=== PATIENT | female | born 1985 | race African-American/Black ===

== ENCOUNTER 2017-02-05 16:56 | Emergency (ER) | payer OTHER, MEDICAID ==
[2017-02-05 17:03] VITALS: BMI 30.1
--- NOTE | 2017-02-05 17:17 | DR.GENAD ---
HPI - PCP Primary Care Physician: NFD - Complaint/Symptoms Chief Complaint Doctors Comments: Patient states that she has been having pain in her right upper extremity for three and is getting worse. She took Bactrim DS given to her by her mother. The pain is 10 in severity, worse with movement, quality sharp. Chief Complaint:: PT C/O RIGHT ARM EDEMA WITH BLISTERS, THAT STARTED A DAY AGO AND ITS GETTING WORSE... Self Treatment fo Chief Complaint: HEAT, HEATING PAD - Source History Provided: Patient - Mode of Arrival Mode of Arrival: Wheelchair - Timing Onset of Chief Complaint: 02/03/17 PMH - PMH Past Medical History: Yes Past Medical History: Hypertension Past Medical History Comment: CERVICAL CANCER.. Past Surgical History: Yes Past Surgical History Comment: C-SECTIONS, KNEE SURGERY - Family History History of Family Medical Conditions: Yes Family Medical History: Hypertension - Social History Does patient currently use any type of tobacco product: Yes Have you used tobacco products in the last 12 months: Yes Type of Tobacco Use: Cigarettes How many years tobacco product used: 16 Does any household member use tobacco: No Alcohol Use: None Do you use any recreational Drugs:: Yes (THC) Lives With: Alone Lives Where: Home - infectious screening In the last 2 months have you had wt loss of >10#?: NO Have you had fever, night sweats or hemotysis?: No Have you traveled outside the country in the last 6 months?: No Isolation: Standard ROS - Review of Systems Constitutional: No Symptoms Reported Eyes: No Symptoms Reported ENTM: No Symptoms Reported Respiratoy: No Symptoms Reported Cardiovascular: No Symptoms Reported Gastrointestinal/Abdominal: No Symptoms Reported Genitourinary: No Symptoms Reported Neurological: No Symptoms Reported Musculoskeletal: Muscle Pain (right upper extremity), Arm (right edematous) Integumentary: No Symptoms Reported Hematologic/Lymphatic: No Symptoms Reported Endocrine: No Symptoms Reported Psychiatric: No Symptoms Reported All Other Systems: Reviewed and Negative PE - Vital Signs Vitals: Temperature 101.2 F Pulse Rate [Apical] 122 Pulse Rate 143 Respiratory Rate 16 Blood Pressure [Left Arm] 134/81 Blood Pressure 146/92 O2 Sat by Pulse Oximetry 100 - General Limitations: No Limitations General Appearance: Alert, Anxious - Head Head Exam: Normal Inspection, Atraumatic - Eyes Eye exam: Normal Appearance, PERRL, EOMI - ENT ENT Exam: Normal Exam TM/Canal Exam: Bilateral Normal Nose Exam: Normal Nose Exam Mouth Exam: Normal Inspection Throat Exam: Normal Inspection - Neck Neck Exam: Normal Inspection - Chest Chest Inspection: Normal Inspection - Respiratory Respiratory Exam: Normal Lung Sounds Bilat Respiratory Exam: Bilateral Clear to Auscultation - Cardiovascular Cardiovascular Exam: Regular Rate, Normal Rhythm - Abdominal Exam Abdominal Exam: Normal Inspection Abdominal Tenderness: negative: RUQ, RLQ, LUQ, LLQ, Epigastrium, Suprapubic, Diffuse, Mild, Moderate, Severe, Other - Extremities Extremities Exam: Tenderness, Joint Swelling (right upper extremity) - Back Back Exam: Tenderness (RUE) - Neurologic Neurological Exam: Alert, Oriented X3, CN II-XII Intact - Psychiatric Psychiatric Exam: Normal Affect - Skin Skin Exam: Warm, Dry Course - Reevaluation 1st: Unchanged - Consultation Called: 21:45 (No return call communicated via 3rd constitution party to call back in AM) Call Returned: 21:40 (Need surgical back up prior to acceptance) Consultation Comments: [facility] called at [phone], Dr Koo accepted patient for transfer. ROR - Labs Reviewed Laboratory Results Reviewed?: Yes (low sod, low pot) Result Diagrams: 02/05/17 17:52 02/05/17 17:52 Laboratory: WBC 22.0 X10^3/uL (3.6-10.0) H* 02/05/17 17:52 RBC 4.97 X10^6/uL (3.5-5.4) 02/05/17 17:52 Hgb 14.1 g/dL (12.0-16.0) 02/05/17 17:52 Hct 42.7 % (36.0-47.0) 02/05/17 17:52 MCV 85.9 fL (80.0-100.0) 02/05/17 17:52 MCH 28.4 pg (27.0-34.0) 02/05/17 17:52 MCHC 33.1 g/dL (33.0-35.0) 02/05/17 17:52 RDW 12.8 % (11.6-16.5) 02/05/17 17:52 Plt Count 357 X10^3/uL (150.0-450.0) 02/05/17 17:52 Plt Count Comment Adequate (ADEQUATE) 04/14/17 17:52 MPV 8.0 fL (7.4-11.0) 02/05/17 17:52 Neut % 78.5 % (42.0-75.0) H 02/05/17 17:52 Lymph % 13.0 % (21.0-51.0) L 02/05/17 17:52 Murray % 7.7 % (0.0-13.0) 02/05/17 17:52 Eos % 0.2 % (0.9-2.9) L 02/05/17 17:52 Baso % 0.6 % (0.2-1.0) 02/05/17 17:52 Neut # 17.3 x10^3/uL (2.2-4.8) H 02/05/17 17:52 Lymph # 2.9 X10^3/uL (1.3-2.9) 02/05/17 17:52 Murray # 1.7 x10^3/uL (0.3-0.8) H 02/05/17 17:52 Eos # 0.0 x10^3/uL (0.0-0.2) 02/05/17 17:52 Baso # 0.1 X10^3/uL (0.0-0.1) 02/05/17 17:52 Absolute Nucleated RBC 0.0 /100WBC 02/05/17 17:52 Total Counted 100 02/05/17 17:52 Neutrophils % (Manual) 74 % (39-76) 02/05/17 17:52 Band Neutrophils % 5 % (0-10) 02/05/17 17:52 Lymphocytes % (Manual) 15 % (13-43) 02/05/17 17:52 Monocytes % (Manual) 5 % (4-9) 02/05/17 17:52 Eosinophils % (Manual) 1 % (0-6) 02/05/17 17:52 Plt Morphology Comment Normal (NORMAL) 02/05/17 17:52 RBC Morphology Normal (NORMAL) 02/05/17 17:52 INR Target Range - 02/05/17 17:30 INR 1.11 (0.8-1.3) 02/05/17 17:30 PTT 30.7 SECONDS (22.9-36.5) 02/05/17 17:30 PTT Comment - 02/05/17 17:30 D-Dimer 2730 ng/mL (0-400) H* 02/05/17 17:52 Sodium 133 mmol/L (136-145) L 02/05/17 17:52 Corrected Sodium 133 mmol/L (136-145) L 02/05/17 17:52 Potassium 3.3 mmol/L (3.5-5.1) L 02/05/17 17:52 Chloride 94 mmol/L (98-107) L 02/05/17 17:52 Carbon Dioxide 28.0 mmol/L (21-32) 02/05/17 17:52 BUN 7 mg/dL (7-18) 02/05/17 17:52 Creatinine 1.13 mg/dL (0.55-1.02) H 02/05/17 17:52 Est GFR (MDRD) Af Amer > 60 (>60) 02/05/17 17:52 Est GFR (MDRD) Non-Af 60 (>60) 02/05/17 17:52 Glucose 111 mg/dL (65-99) H 02/05/17 17:52 Calcium 9.6 mg/dL (8.5-10.1) 02/05/17 17:52 Corrected Calcium TNP 02/05/17 17:52 Total Bilirubin 1.00 mg/dL (0.2-1.0) 02/05/17 17:52 AST 26 Units/L (15-37) 02/05/17 17:52 ALT 41 Units/L (12-78) 02/05/17 17:52 Alkaline Phosphatase 79 Units/L (46-116) 02/05/17 17:52 C-Reactive Protein 167.90 mg/L (0-3.0) H 02/05/17 17:52 Total Protein 9.4 g/dL (6.4-8.2) H 02/05/17 17:52 Albumin 3.9 g/dL (3.4-5.0) 02/05/17 17:52 Globulin 5.5 g/dL (2.5-4.5) H 02/05/17 17:52 Albumin/Globulin Ratio 0.7 Ratio (1.1-2.1) L 02/05/17 17:52 Specimen Type Clean catch urine 02/05/17 19:46 Urine Color Yellow (YELLOW) 02/05/17 19:46 Urine Appearance Clear (CLEAR) 02/05/17 19:46 Urine pH 6.5 (5.0 - 8.0) 02/05/17 19:46 Ur Specific [place] 1.005 (1.000-1.030) 02/05/17 19:46 Urine Protein Negative (NEGATIVE) 02/05/17 19:46 Urine Glucose (UA) Negative (NEGATIVE) 02/05/17 19:46 Urine Ketones Negative (NEGATIVE) 02/05/17 19:46 Urine Occult Blood Negative (NEGATIVE) 02/05/17 19:46 Urine Nitrite Negative (NEGATIVE) 02/05/17 19:46 Urine Bilirubin Negative (NEGATIVE) 02/05/17 19:46 Urine Urobilinogen 2+ (NORMAL) 02/05/17 19:46 Ur Leukocyte Esterase Negative (NEGATIVE) 02/05/17 19:46 Urine RBC 0-5 /HPF (NEGATIVE) 02/05/17 19:46 Urine WBC 0-3 /HPF (NEGATIVE) 02/05/17 19:46 Ur Squamous Epith Cells Rare /HPF (NEGATIVE) 02/05/17 19:46 Urine Bacteria Negative /HPF (NEGATIVE) 02/05/17 19:46 Ur Culture Indicated? No/not indicated 02/05/17 19:46 - XRAY XRAY Interpreted by: Radiologist (Doppler U/S: There is an abscess measuring 2.8x2.7x3 cm in the right barachial area. The deep veins of the right upper extremity augment and show biphasic flow and compression. However the brachial vein is not seen well due to the large abscess. Impression: No evidence for venous thromgbosis in the right upper extremity, Right Brachial abscess.) - Diagnosis Discharge Problem: Brachial vein abscess, Cellulitis of upper arm and forearm - Discharge Plan Condition: Stable - Follow ups/Referrals Follow ups/Referrals: NFD,None [Primary Care Provider] - 3 days - Instructions
[2017-02-05] MEDS ORDERED: NS 1000 ML 1,000 ML IV ONE (17:18)
[2017-02-05] MEDS ORDERED: NS 1000 ML 1,000 ML ONE ×2 (17:26→19:00)
[2017-02-05 18:08] LABS: ALANINE AMINOTRANSFERASE 41 Units/L (12-78); ALBUMIN 3.9 g/dL (3.4-5.0); ALKALINE PHOSPHATASE 79 Units/L (46-116); ASPARTATE AMINO TRANSFERASE 26 Units/L (15-37); BLOOD UREA NITROGEN 7 mg/dL (7-18); CALCIUM 9.6 mg/dL (8.5-10.1); CHLORIDE 94 mmol/L (98-107); COR NA(FOR HYPERGLY) 133 mmol/L (136-145); CREATININE 1.13 mg/dL (0.55-1.02); GLUCOSE 111 mg/dL (65-99); SODIUM 133 mmol/L (136-145); TOTAL PROTEIN 9.4 g/dL (6.4-8.2); eGFR BLACK RACES > 60 (>60); eGFR NON BLACK RACES 60 (>60)
--- NOTE | 2017-02-05 18:32 | RAD ---
HISTORY: 31-year-old female with fever and diffuse body pain. Study: Single frontal view of the chest. Comparison: None. Findings: The trachea is midline. The cardiac silhouette is unremarkable. The lungs are clear without focal infiltrate or effusion. The bony thorax is unremarkable. IMPRESSION: 1. No acute cardiopulmonary disease. Reported By:
[2017-02-05 18:33] LABS: BASOPHILS # (AUTO) 0.1 X10^3/uL (0.0-0.1); BASOPHILS % (AUTO) 0.6 % (0.2-1.0); EOSINOPHILS % (AUTO) 0.2 % (0.9-2.9); HEMATOCRIT 42.7 % (36.0-47.0); HEMOGLOBIN 14.1 g/dL (12.0-16.0); LYMPHOCYTES # (AUTO) 2.9 X10^3/uL (1.3-2.9); MEAN CORPUSCULAR HEMOGLOBIN 28.4 pg (27.0-34.0); MEAN CORPUSCULAR HGB CONC 33.1 g/dL (33.0-35.0); MEAN CORPUSCULAR VOLUME 85.9 fL (80.0-100.0); MONOCYTES # (AUTO) 1.7 x10^3/uL (0.3-0.8); MONOCYTES % (AUTO) 7.7 % (0.0-13.0); NEUTROPHILS # (AUTO) 17.3 x10^3/uL (2.2-4.8); NEUTROPHILS % (AUTO) 78.5 % (42.0-75.0); PLATELET COUNT 357 X10^3/uL (150.0-450.0); RED BLOOD COUNT 4.97 X10^6/uL (3.5-5.4); RED CELL DISTRIBUTION WIDTH 12.8 % (11.6-16.5)
[2017-02-05 18:39] LABS: BAND NEUTROPHILS % 5 % (0-10)
[2017-02-05 18:40] LABS: PLATELET MORPHOLOGY COMMENT NORMAL (NORMAL)
[2017-02-05 19:11] LABS: D DIMER 2730 ng/mL (0-400)
[2017-02-05] MEDS ORDERED: MORPHINE SULFATE INJ 4 MG IVP ONE (19:40)
[2017-02-05] MEDS ORDERED: PHENERGAN INJ 25 MG IV ONE (19:40)
[2017-02-05] MEDS ORDERED: PHENERGAN INJ 25 MG ONE (19:45)
[2017-02-05] MEDS ORDERED: MORPHINE SULFATE INJ 4 MG ONE (19:46)
[2017-02-05] MEDS ORDERED: K-DUR TAB 20 MEQ PO ONE (19:52)
[2017-02-05] MEDS ORDERED: NS 1000 ML 1,000 ML IV SCH (20:00)
[2017-02-05 20:05] LABS: BILIRUBIN,URINE NEGATIVE (NEGATIVE); BLOOD/HEMOGLOBIN,URINE NEGATIVE (NEGATIVE); GLUCOSE, URINE NEGATIVE (NEGATIVE); KETONES,URINE NEGATIVE (NEGATIVE); LEUKOCYTE ESTERASE ,URINE NEGATIVE (NEGATIVE); NITRITES,URINE NEGATIVE (NEGATIVE); PH,URINE 6.5 (5.0 - 8.0); PROTEIN,URINE NEGATIVE (NEGATIVE); UROBILINOGEN,URINE 2+ (NORMAL)
[2017-02-05 20:23] LABS: APPEARANCE,URINE CLEAR (CLEAR); COLOR,URINE YELLOW (YELLOW)
[2017-02-05 20:24] LABS: BACTERIA,URINE NEGATIVE /HPF (NEGATIVE); RBC,URINE 0-5 /HPF (NEGATIVE); SQUAMOUS EPITHELIAL CELL,UR RARE /HPF (NEGATIVE)
--- NOTE | 2017-02-05 20:32 | VAS ---
History: Pain and edema and fever right upper extremity Study: Doppler ultrasound of the right upper extremity Findings: There is an abscess measuring 2.8 x 2.7 x 3 centimeters in the right brachial area. The de ep veins of the right upper extremity augment and show biphasic flow and compression. However the br achial vein is not seen well due to the large abscess. Impression: 1. No evidence for venous thrombosis in the right upper extremity 2. Right tracheal abscess Reported By:
[2017-02-05] MEDS ORDERED: ROCEPHIN VIAL 1 GM 1 GM in NS 50 ML IV + SPIKE MINIBAG* 50 ML IV ONE (22:37)
[2017-02-05] MEDS ORDERED: ROCEPHIN 1 GM IV PREMIX * OUT OF STOCK 50 ML IV ONE (22:41)
[2017-02-05] MEDS ORDERED: TYLENOL 325 MG TAB PO ONE (23:06)
[2017-02-05 23:07] VITALS: BP 130/67
[2017-02-05] MEDS ORDERED: TYLENOL 500 MG TAB EXTRA STRENGTH PO ONE (23:09)
[2017-02-05] MEDS ORDERED: TYLENOL 500 MG TAB EXTRA STRENGTH ONE (23:09)
[2017-02-05] MEDS ORDERED: DILAUDID INJ IVP ONE (23:13)
[2017-02-05] MEDS ORDERED: DILAUDID INJ ONE (23:15)
== END 2017-02-05 23:44 | disposition short-term general hospital (02) ==
LOC: ER 17:11
PROC: 0T9B70Z Drainage of Bladder with Drainage Device, Via Natural or Artificial Opening (ICD-10-PCS; principal; 2017-02-05)
DX: I82.629 Acute embolism and thrombosis of deep veins of unspecified upper extremity (principal); L03.114 Cellulitis of left upper limb
CPT/HCPCS: 36415; 51702; 71010; 80053; 81001; 85025; 85378; 85610; 85730; 86140; 93971; 96365; 96374; 96375; 99284; 99285; A4222; J0696; J2270; J2550